=== PATIENT | female | born 1955 | race Caucasian/White ===

== ENCOUNTER → 2020-06-15 | Outpatient (CLI) | payer OTHER | LOC: LAB 14:00 | PROVIDERS: ATTEND Family Medicine | DX: Z20.828 Contact with and (suspected) exposure to other viral communicable diseases (principal); R05 Cough; R50.9 Fever, unspecified ==

== ENCOUNTER → 2020-12-03 | Outpatient (CLI) | payer OTHER | LOC: RAD 11:34 | PROVIDERS: ATTEND Family Medicine | DX: Z12.31 Encounter for screening mammogram for malignant neoplasm of breast (principal) ==

== ENCOUNTER → 2020-12-11 | Outpatient (CLI) | payer OTHER | LOC: ULTRA 10:26 | PROVIDERS: ATTEND Radiology Diagnostic Radiology | DX: R92.2 Inconclusive mammogram (principal) ==

== ENCOUNTER → 2020-12-16 | Outpatient (CLI) | payer OTHER | LOC: SJCVCIMAG 10:23 | PROVIDERS: ATTEND Internal Medicine | DX: I35.1 Nonrheumatic aortic (valve) insufficiency (principal); R01.1 Cardiac murmur, unspecified; I10 Essential (primary) hypertension ==